=== PATIENT | female | born 1985 | race Caucasian/White ===

== ENCOUNTER 2020-05-03 08:27 | Emergency (ER) | payer SELFPAY ==
[2020-05-03 08:52] VITALS: BP 150/76; PULSE 83; RESP 16; TEMP 37.2; O2SAT 99
--- NOTE | 2020-05-03 08:58 | ED.FEMALEGU ---
HPI - Female Genitourinary General Chief complaint: Urogenital-Female Stated complaint: possible uti Time Seen by Provider: 05/03/20 08:58 Source: patient and RN notes reviewed Mode of arrival: ambulatory Limitations: no limitations History of Present Illness HPI Narrative: 34-year-old female presents with concern for urine frequency for 3 weeks. Reports feeling of frequent need to urinate, reports at the beginning of symptoms her urine had a foul odor. Reports she is been taking Azo and trying home remedies with intermittent relief. She reports today she is not currently having frequency, however she had frequency yesterday. She denies fever, malaise, back pain, abdominal pain, abnormal vaginal discharge, vaginal bleeding, itching. MD elicited complaint: UTI Related Data Home Medications Medication Instructions Recorded Confirmed omeprazole magnesium [Prilosec OTC] 20 mg PO DAILY 05/03/20 05/03/20 Allergies Allergy/AdvReac Type Severity Reaction Status Date / Time No Known Allergies Allergy Verified 05/03/20 09:04 Review of Systems Review of Systems: Narrative: CONSTITUTIONAL: Denies malaise, chills, sweats, or fever. CARDIOVASCULAR: Denies chest pain, palpitations RESPIRATORY: Denies cough or dyspnea. GASTROINTESTINAL: Denies abdominal pain, nausea, vomiting, diarrhea GENITOURINARY: Denies dysuria or hematuria. Reports urine frequency SKIN: Denies rash or itching. MUSCULOSKELETAL: Denies back pain, joint pain, or myalgia. All systems reviewed & are unremarkable except as noted in HPI and below PMFSH Social History Social History Gender identity (if verbalized by the patient): Female Comments At time of signature, agree with nursing past medical, surgical, social and family history. There is no relevant family history pertinent to the presenting complaint Exam Narrative: Exam Narrative: GENERAL: Well-appearing, well-nourished, and in no acute distress. HEAD: Normocephalic. EYES: PERRLA, conjunctivae clear. NECK: Supple. No lymphadenopathy CHEST: Clear to auscultation. No respiratory distress. HEART: Regular rate and rhythm. No murmur heard. Normal peripheral pulses. ABDOMEN: Soft, nontender upon palpation, nondistended, normal active bowel sounds, no palpable or pulsatile masses, no guarding. No CVA tenderness SKIN: Warm, dry, no rash. NEURO: Alert and oriented x3. PSYCH: Normal mood and affect Course Course Emergency Course: Discussed with patient sending urine culture. Patient does not have health insurance, and feels urine culture will be cost prohibitive. Discussed with patient starting her on antibiotic based on symptoms, she will follow-up on [facility] clinic Patient is aware of diagnosis, understands and agrees to treatment plan. Anticipatory guidance given. Patient agrees to follow-up as directed and is aware of reasons to seek care at the emergency department. Portions of this record may have been created with voice recognition software Vital Signs Vital signs: Vital Signs Temperature 98.9 F 05/03/20 08:52 Pulse Rate 83 05/03/20 08:52 Respiratory Rate 16 05/03/20 08:52 Blood Pressure 150/76 H 05/03/20 08:52 Pulse Oximetry 99 05/03/20 08:52 Temperature 98.9 F 05/03/20 08:52 Pulse Rate 83 05/03/20 08:52 Respiratory Rate 16 05/03/20 08:52 Blood Pressure 150/76 H 05/03/20 08:52 Pulse Oximetry 99 05/03/20 08:52 Reviewed. Patient has been instructed to follow up with her primary care provider within the next week regarding her elevated blood pressure today. MDM - Female Genitourinary MDM Narrative Medical decision making narrative: Exam findings and UA show no acute concerns or changes; patient is non-toxic appearing and is in no distress. Patient is appropriate for outpatient treatment and follow-up. Differential Diagnosis Differential diagnosis: Likely urinary tract infection and cystitis Lab Data Labs: Urine Glucose Negativ
== END 2020-05-03 09:18 | disposition home or self-care (01) ==
PROVIDERS: Emergency Provider Nurse Practitioner
DX: R35.0 Frequency of micturition (principal); K21.9 Gastro-esophageal reflux disease without esophagitis
CPT/HCPCS: 81003; 99213; G0463

== ENCOUNTER 2022-12-19 09:06 | Outpatient (CLI) | payer OTHER, SELFPAY ==
[2022-12-19 09:46] LABS: Hematocrit 42.4 % (37.0-47.0); Hemoglobin 14.1 g/dL (12.0-15.0)
== END 2022-12-19 09:07 | disposition home or self-care (01) ==
LOC: ANHLAB 09:09
PROVIDERS: Visit Provider Obstetrics & Gynecology
DX: Z01.818 Encounter for other preprocedural examination (principal); N92.6 Irregular menstruation, unspecified
CPT/HCPCS: 36415; 85014; 85018

== ENCOUNTER 2022-12-29 01:55 | Day surgery (SDC) | payer OTHER, SELFPAY ==
[2022-12-18 15:48] VITALS: BMI 23.6
--- NOTE | 2022-12-18 15:56 | PC.NURSE ---
Report to the Outpatient Waiting Room, entrance under the green pavilion located off [facility], at time 1200 on date 12/29/22. Planned Procedure Time: 1400. Time changes happen often and if your time is changed the preop area will call you the afternoon before. - You and your visitor will be asked to self-screen and do not enter if you have any COVID symptoms. - A mask is optional within the hospital at this time. Patients may have clear liquids (water, carbonated beverages, clear teas, apple juice) until 3 hours prior to surgery with a maximum of 20 ounces. 1100 - No food from midnight until time of surgery - Infants may have breast milk until 4 hours before surgery, formula 6 hours prior to surgery. - Children will be allowed to drink immediately following surgery. If applicable, please bring a bottle or sippy cup to assist with drinking. Juice, water, soda, and popsicles are readily available. For infants on formula, please bring formula the day of surgery. Pacifiers are allowed. Take the following medications with a SIP of water the morning of surgery: slynd, omeprazole DO NOT STOP ANY OF YOUR OTHER PRESCRIPTION MEDICATIONS PRIOR TO SURGERY ?EXCEPT THE FOLLOWING Medications to discontinue per physician n/a Date to take last dose n/a Please no make-up, nail czech, hairspray, perfume, deodorant, or body powder the day of surgery. No jewelry (including any body piercings) or valuables the day of surgery, leave them at home. Please take a shower or bath the night before, or the morning of, surgery with an antibacterial soap. Wear comfortable, loose fitting clothing. Children are encouraged to wear pajamas. - Jewelry must be removed prior to entering the operating room. Rings and piercings that are not removed may be cut off. - The hospital will not accept responsibility for valuables. - Please leave all valuables, including medications, at home the day of surgery. If you are going home after surgery, a licensed motor bus driver must drive you home. - NO public transportation without another adult if you receive anesthesia. - We recommend that an adult stay with you for 24 hours following discharge. - We also recommend that you do not drive, make important decision, drink alcoholic beverages, or take any drugs that were not prescribed by your health care provider for at least 24 hours after your discharge time. For Pediatric surgeries, we recommend two adults accompany the child home. Follow any additional instructions given to you from your surgeon. If you or anyone in your household have experienced Covid symptoms in the past week, please notify your surgeon or the nurse liaison at the phone number below for possible testing. Telephone instructions given to Marina Keith and asked if any additional questions and then verbalized understanding. Patient advised to call surgeon office or pre surgery nurse liaison [phone] if any additional questions.
--- NOTE | 2022-12-26 07:49 | PM.IMHP ---
H&P: HPI History of Present Illness Date/Time: 12/26/22 07:49 Chief Complaint: Irregular bleeding and desires permanent sterilization Narrative: So 37-year-old female who desires permanent under personal sterilization. She also has irregular bleeding undergo hysteroscopy dilatation curettage and ablation. Risks and benefits reviewed in full. Permanence and irreversibility were also reviewed [facility] Social History Social History Smoking status: Never smoker Living arrangements: with family Gender identity (if verbalized by the patient): Female Spiritual care concerns: No Meds Home Medications and Allergies Home Medications Medication Instructions Recorded Confirmed Type omeprazole magnesium 20 mg 20 mg PO DAILY 05/03/20 12/18/22 History tablet,delayed release (Prilosec OTC) drospirenone (contraceptive) 4 mg 1 tablet PO DAILY 12/18/22 12/18/22 History (28) tablet (Slynd) Allergies Allergy/AdvReac Type Severity Reaction Status Date / Time No Known Allergies Allergy Verified 12/18/22 15:46 Exam Const: General: cooperative, healthy appearing, comfortable and well groomed Nutritional Appearance: average body habitus Orientation/consciousness: oriented to person, oriented to place and oriented to time HENMT: Head: normal to inspection Resp: Effort & Inspection: normal respiratory effort Cardio: Rate: regular rate Rhythm: regular rhythm Heart sounds: S1 normal heart sound present and S2 normal heart sound present GI: Inspection: normal to inspection Percussion: Yes normal to percussion Auscultation: normal bowel sounds : Speculum Exam - Vagina: normal appearance of the vagina Speculum Exam - Cervix: normal appearance of the cervix Bimanual exam- vagina & uterus: uterine size normal Bimanual Exam- Adnexa, other: normal adnexae Assessment and Plan Assessment and plan (1) Sterilization: Code(s): Z30.2 - Encounter for sterilization Status: Acute (2) Vagina bleeding: Code(s): N93.9 - Abnormal uterine and vaginal bleeding, unspecified Status: Acute Plan Laparoscopic bilateral tubal ligation/hysteroscopy/dilatation curettage/ablation
[2022-12-29] VITALS (11 sets, daily range): BP systolic 95–132; BP diastolic 52–88; PULSE 45–79; RESP 12–18; TEMP 36.4–37; O2SAT 100; BMI 23.8
--- NOTE | 2022-12-29 06:01 | WPDHPUPDATE1 ---
History and Physical Update Update Date/Time: 12/29/22 06:01 History and Physical has been reviewed, including an updated exam of the patient. There are NO changes in the patient's condition. Risks, benefits, and alternatives have been discussed and questions answered. Patient agrees to proceed with procedure.
[2022-12-29] MEDS: LACTATED RINGERS 1,000 ML 30 ML IV CONT (12:20)
[2022-12-29] MEDS: ACETAMINOPHEN 500 MG TABLET 1000 MG PO (12:24)
[2022-12-29] MEDS: KETOROLAC 15 MG/ML VIAL (*BKC) IV PUSH (12:24)
--- NOTE | 2022-12-29 12:45 | WPDANESEPPF ---
Anes - Initial Pre Proc Eval Procedure: Operation Date: 12/29/22 13:30 Proposed Procedures p Laparoscopic Bilateral Tubal Sterilization, - Woodrow Miller MD s Hysteroscopy, Dilation and Curettage, Nataliia Endometrial Ablation - Woodrow Miller MD Date/Time: 12/29/22 12:45 Surgeon: Woodrow Miller MD Pre Op Diagnosis: desires sterilization, irregular bleeding Patient Data Age: 37 Gender: F Height: 1.55 m Weight: 57.3 kg Last Vital Signs Temp 37.0 C 12/29/22 11:42 Pulse 79 12/29/22 11:42 Resp 16 12/29/22 11:42 BP 132/88 12/29/22 11:42 Pulse Ox 100 12/29/22 11:42 O2 Del Method Room Air 12/29/22 11:42 Allergies Allergy/AdvReac Type Severity Reaction Status Date / Time No Known Allergies Allergy Verified 12/29/22 12:06 Home Medications Medication Instructions Recorded Confirmed Type omeprazole magnesium 20 mg 20 mg PO DAILY 05/03/20 12/29/22 History tablet,delayed release (Prilosec OTC) drospirenone (contraceptive) 4 mg 1 tablet PO DAILY 12/18/22 12/18/22 History (28) tablet (Slynd) hydrocodone 5 mg-acetaminophen 325 1 tablet PO Q4H PRN pain #20 tabs 12/29/22 Rx mg tablet Patient hx anesthesia problems: none Family hx anesthesia problems: none Results Review: All pre-operative results and documents have been reviewed as part of the pre-operative evaluation. [facility] Social History Social History Smoking status: Never smoker Living arrangements: with family Gender identity (if verbalized by the patient): Female Spiritual care concerns: No Anes - Eval Final PreProcedure Day of Procedure 12/29/22 12:45 Patient weight: normal Heart: regular rate and rhythm Lungs: clear to auscultation Airway: Mallampati scale class II Neurological: alert and oriented Last oral intake: >/= 8 hours ASA classification: II Emergent: no Anesthesia type and monitoring: general ETT and standard monitoring Results Review: All pre-operative results and documents have been reviewed as part of the pre-operative evaluation. Informed Consent: The patient's anesthetic plan and its attendant risks and benefits were discussed with the patient/family/POA. Questions were solicited and answers provided to the satisfaction of the patient/family/POA.
[2022-12-29] MEDS: SCOPOLAMINE 1.5 MG PATCH TRANSDERM (13:40)
--- NOTE | 2022-12-29 14:22 | W.PM.PROC2 ---
Procedure Note - Detailed Date of Procedure 12/29/22 Pre-op Diagnosis desires sterilization, irregular bleeding Post-op Diagnosis Same Procedure Performed Laparoscopic bilateral tubal ligation with rings/hysteroscopy/ dilatation curettage/Nataliia ablation Surgeon Woodrow Miller MD Anesthesia General Indications 37-year-old female with excessive heavy bleeding desires irreversible sterilization Findings normal-appearing ovaries uterus and tubes. Normal-appearing appendix and gallbladder and liver edge. On hysteroscopy the uterus sounded to 8cm very bland and benign endometrial tissue was seen with normal appearing tubal ostia bilaterally Description of Procedure patient was prepped and draped in the normal sterile fashion placed in dorsal lithotomy position. Under excellent general trach anesthesia weighted speculum placed posterior fornix vagina. Anterior lip of the cervix grasped with a single-tooth tenaculum. Causey's cannula inserted the cervix and attached to the single-tooth. These will be used later for uterine manipulation. Bladder was emptied of clear urine the weighted speculum was removed. Gloves were changed. An infraumbilical incision made. Veress needle passed in the abdomen. Abdomen filled with CO2 gas [id number]. 5mm trocar advanced under direct visualization with the optic scope. No injury seen. Patient placed in 20? Trendelenburg. Suprapubic incision made and the 8mm trocar advanced under direct visualization assuring no injury. The above findings were seen in photo documentation undertaken. The right fallopian tube was then gas grasped and a good knuckle of tube formed with excellent blanching. The left fallopian tube was then grasped and a good knuckle of tube formed with the ring on the opposite side. Blanching was noted. No other abnormalities were seen and the lower site removed. The gas removed from the abdomen. The upper site removed the incisions closed with 4 Monocryl and glue. Attention was turned to the hysteroscopic portion of the procedure. Uterus sounded to 8cm. Serial dilatation with fragmented dilators performed followed by passage of the viewed a hysteroscope using normal saline as visualizing medium. Photo documentation was undertaken as each fallopian tube os could be seen and the endometrium was noted to be bland and regular. The uterus was scraped over the entire 360? until a good grating sound was heard. These instruments were then removed and the Nataliia instrument placed in the uterus. This was then burned 120seconds at the appropriate depth. The instrument was withdrawn and the IV to hysteroscope reinserted a good burn was seen with photo documentation. All the instruments withdrawn the patient was awakened. She went to recovery in satisfactory condition. All sponge, needle, instrument counts were correct. There were no immediate complications Estimated Blood Loss 5 Drains No Packing No Pathology Yes Complications No immediate complications Condition Stable Disposition PACU
[2022-12-29] MEDS: fentaNYL CITRATE INJ (*CRX) 100 MCG/2 ML VIAL 25 MCG IV PUSH ×8 (14:40→15:20)
[2022-12-29] MEDS: ONDANSETRON INJ 4 MG/2 ML VIAL IV PUSH (15:49)
[2022-12-29] MEDS: oxyCODONE HCL (*CRX) 5 MG TAB IR PO (16:00)
[2022-12-29] MEDS: HYDROmorphone HCL INJ (*CRX) 1 MG/ML SYR 0.5 MG IV PUSH (16:45)
== END 2022-12-29 17:41 | disposition home or self-care (01) ==
PROVIDERS: PCP Physician Assistant; Visit Provider Obstetrics & Gynecology
PROC: (CPT 58671; principal; 2022-12-29 13:30)
PROC: 0U5B8ZZ Destruction of Endometrium, Via Natural or Artificial Opening Endoscopic (ICD-10-PCS; CPT 58563; 2022-12-29 13:30)
DX: Z30.2 Encounter for sterilization (principal); N93.9 Abnormal uterine and vaginal bleeding, unspecified
CPT/HCPCS: 58671; 58563; 88305; A4264; A9270; J0330; J1100; J1170; J1885; J2250; J2405; J2704; J2710; J3010; J7030; J7120

== ENCOUNTER 2024-05-29 11:15 | Outpatient (CLI) | payer OTHER, SELFPAY ==
[2024-05-29 12:07] LABS: Basophils Absolute Auto 0.1 K/mm3 (0.0-0.1); Basophils Percent Auto 0.7 % (0.2-1.2); Eosinophils Absolute Auto 0.1 K/mm3 (0-0.3); Eosinophils Percent Auto 0.8 % (0-4.4); Hematocrit 46.6 % (37.0-47.0); Hemoglobin 15.3 g/dL (12.0-15.0); Immature Granulocyte Absolute 0.02 K/mm3 (0.00-0.031); Immature Granulocyte Percent A 0.3 % (0-0.5); Lymphocytes Absolute Auto 1.18 K/mm3 (0.9-3.2); Lymphocytes Percent Auto 15.7 % (18.3-44.2); Mean Corpuscular HGB Conc 32.8 g/dl (32-36); Mean Corpuscular Hemoglobin 29.5 pg (26-34); Mean Platelet Volume 11.2 fl (7.4-10.4); Monocytes Absolute Auto 0.5 K/mm3 (0.1-0.6); Monocytes Percent Auto 6.5 % (2.6-8.5); Neutrophils Absolute Auto 5.7 K/mm3 (1.3-6.7); Platelet Count Result 313 k/mm3 (150-375); Red Blood Count 5.18 M/mm3 (4.2-5.4); Red Cell Distribution Width 12.5 % (11.5-14.5); White Blood Count 7.5 K/mm3 (4.5-10.0)
[2024-05-29 12:17] LABS: Alanine Aminotransferase 20 U/L (6-35); Albumin Level 4.9 g/dL (3.5-5.1); Alkaline Phosphatase 72 U/L (38-126); Anion Gap 9 mmol/L (4-12); Aspartate Amino Transferase 22 U/L (14-36); Bilirubin,Total 0.4 mg/dL (0.2-1.3); Blood Urea Nitrogen 18 mg/dL (7-17); Calcium 9.4 mg/dL (8.4-10.2); Carbon Dioxide 26 mmol/L (22-30); Chloride 101 mmol/L (98-107); Estimated Glomerular Filt Rate > 60; Glucose 141 mg/dL (65-110); Potassium 4.1 mmol/L (3.4-5.0); Sodium 136 mmol/L (137-145)
[2024-05-29 12:34] LABS: Beta HCG Quantitative < 2.39 mIU/ML
[2024-05-29 12:52] LABS: Vitamin D 25 Hydroxy 46.3 ng/mL
[2024-06-02 17:39] LABS: Lyme Disease Ab (IgM), Blot NEGATIVE (NEGATIVE); Lyme Disease Ab(IgG), Blot NEGATIVE (NEGATIVE)
== END 2024-05-29 11:16 | disposition home or self-care (01) ==
PROVIDERS: PCP Nurse Practitioner Family; Visit Provider Nurse Practitioner
DX: Z00.00 Encounter for general adult medical examination without abnormal findings (principal); M79.10 Myalgia, unspecified site; N91.2 Amenorrhea, unspecified
CPT/HCPCS: 36415; 80053; 82306; 82607; 84443; 84702; 85025; 86038; 86039; 86617

== ENCOUNTER 2024-06-19 14:26 | Outpatient (CLI) | payer OTHER, SELFPAY ==
--- NOTE | ~2024-06-19 | US_ITS ---
EXAMINATION: US pelvic complete w TV DATE: 06/19/2024 17:15 INDICATION: Amenorrhea. Pelvic pain. TECHNIQUE: Multiple transabdominal and transvaginal sonographic images of the pelvis were obtained. COMPARISON: None. FINDINGS: TRANSABDOMINAL ULTRASOUND: The uterus measures 8.4 x 3.5 x 4.2 cm. There is physiologic free fluid in the pelvis. TRANSVAGINAL ULTRASOUND: The endometrial complex measures 2 mm in thickness. There are prominent periuterine veins. The right ovary measures 2.2 x 1.4 x 1.9 cm. The left ovary measures 3.0 x 2.0 x 2.0 cm. There is normal vascul ar flow in the ovaries. IMPRESSION: 1. Prominent periuterine veins, consistent with pelvic venous insufficiency. Reviewed, dictated and finalized at location A.
== END 2024-06-19 14:27 | disposition home or self-care (01) ==
LOC: ANHIMG 14:33
PROVIDERS: PCP Nurse Practitioner Family; Visit Provider Nurse Practitioner
DX: R10.2 Pelvic and perineal pain (principal); N91.2 Amenorrhea, unspecified; M79.10 Myalgia, unspecified site
CPT/HCPCS: 76830; 76856